=== PATIENT | female | born 1990 ===

== ENCOUNTER 2021-09-14 11:45 | Inpatient (IN) | payer OTHER ==
[~2021-09-14] VITALS: Ht 160 cm; Wt 96.6 kg
[2021-10-06] MEDS ORDERED: PRENA1 TRUE CO1 EACH PO (07:53)
== END 2021-10-09 14:28 | disposition home or self-care (01) | DRG 788 ==
LOC: LDR 10-06 06:19 → SURH 10-06 11:45 → OB/GYN 10-07 10:28
PROVIDERS: ADMIT Obstetrics & Gynecology Maternal & Fetal Medicine; ATTEND Obstetrics & Gynecology Maternal & Fetal Medicine
PROC: 3E033VJ Introduction of Other Hormone into Peripheral Vein, Percutaneous Approach (ICD-10-PCS; 2021-10-06)
PROC: 4A1HXCZ Monitoring of Products of Conception, Cardiac Rate, External Approach (ICD-10-PCS; 2021-10-06)
PROC: 10D00Z1 Extraction of Products of Conception, Low, Open Approach (ICD-10-PCS; principal; 2021-10-06 18:30)
DX: O62.1 Secondary uterine inertia (principal); O48.0 Post-term pregnancy; O82 Encounter for cesarean delivery without indication; Z3A.40 40 weeks gestation of pregnancy; Z37.0 Single live birth; Z20.822 Contact with and (suspected) exposure to COVID-19